=== PATIENT | male | born 1970 | race Caucasian/White ===

== ENCOUNTER 2020-01-19 15:19 | Outpatient (CLI) | payer BC ==
[2020-01-19] MEDS ORDERED: PANCREAZE PO (15:46)
[2020-01-19] MEDS ORDERED: OMEP-110 PO (15:46)
== END 2020-01-19 23:59 | disposition home or self-care (01) ==
LOC: STAR 15:19
PROVIDERS: ATTEND Internal Medicine Geriatric Medicine
DX: Z02.9 Encounter for administrative examinations, unspecified (principal)

== ENCOUNTER 2020-01-24 11:22 | Day surgery (SDC) | payer BC ==
[~2020-01-24] VITALS: Ht 167.6 cm; Wt 54.0 kg
[~2020-01-24 11:22] MED LIST: OMEP-110 PO; PANCREAZE PO
[2020-01-24] MEDS ORDERED: LACTATED RINGERS 1,000 ML IV SCH (11:29)
[2020-01-24 11:43] VITALS: BP 112/73
[2020-01-24] MEDS ORDERED: MIDAZOLAM 1 MG/ML, 2ML ONE (13:16)
[2020-01-24] MEDS ORDERED: FENTANYL PF 250 MCG/5ML ONE (13:16)
[2020-01-24] MEDS ORDERED: ONDANSETRON 2MG/ML, 2ML ONE (13:50)
[2020-01-24] MEDS ORDERED: DEXAMETHASONE 4 MG/ML, 1ML ONE (13:50)
[2020-01-24] MEDS ORDERED: SUCCINYLCHOLINE 20 MG/ML, 10ML ONE (13:58)
[2020-01-24] MEDS ORDERED: PROPOFOL 10 MG/ML, 20ML ONE ×2 (13:58)
[2020-01-24] MEDS ORDERED: ROCURONIUM 10MG/ML,5ML ONE (13:58)
[2020-01-24] MEDS ORDERED: DIAZEPAM 5 MG/ML, 2ML IVPush PRN (14:30)
[2020-01-24] MEDS ORDERED: ONDANSETRON ODT 8 MG PO PRN (14:30)
[2020-01-24] MEDS ORDERED: hydrALAzine 20 MG/ML, 1ML IV PRN (14:30)
[2020-01-24] MEDS ORDERED: ONDANSETRON 2MG/ML, 2ML IV PRN (14:30)
[2020-01-24] MEDS ORDERED: PROMETHAZINE 25 MG/ML, 1ML IV PRN (14:30)
[2020-01-24] MEDS ORDERED: MIDAZOLAM 1 MG/ML, 2ML IV PRN (14:30)
[2020-01-24] MEDS ORDERED: EPHEDRINE 50 MG/ML, 1ML IVPush PRN (14:30)
[2020-01-24] MEDS ORDERED: PROMETHAZINE 12.5 MG SUPP PR PRN (14:30)
[2020-01-24] MEDS ORDERED: HYDROmorphone 2 MG/ML, 1ML IVPush PRN (14:30)
[2020-01-24] MEDS ORDERED: HALOPERIDOL 5 MG/ML IV PRN (14:30)
[2020-01-24] MEDS ORDERED: MEPERIDINE/PF 25MG/ML,1ML IVPush PRN (14:30)
[2020-01-24] MEDS ORDERED: ALBUTEROL SULFATE 2.5 MG/3 ML NPPB PRN (14:30)
[2020-01-24] MEDS ORDERED: FENTANYL PF 100 MCG/2ML IV PRN (14:30)
[2020-01-24] MEDS ORDERED: LABETALOL 5MG/ML, 20ML IV PRN (14:30)
[2020-01-24] MEDS ORDERED: OXYcodone 5 MG/5 ML ORAL.SOL UDC PO PRN (14:30)
== END 2020-01-24 16:19 | disposition home or self-care (01) ==
LOC: OUT 11:22
PROVIDERS: ATTEND Internal Medicine Geriatric Medicine
DX: K86.3 Pseudocyst of pancreas (principal); K85.11 Biliary acute pancreatitis with uninfected necrosis; K86.89 Other specified diseases of pancreas; K80.80 Other cholelithiasis without obstruction; F10.11 Alcohol abuse, in remission; Z79.899 Other long term (current) drug therapy
CPT/HCPCS: 43237; J0330; J1100; J2250; J2405; J2704; J3010; J7120